=== PATIENT | male | born 1955 | race Native Hawaiian/Other Pacific Islander ===

== ENCOUNTER 2018-06-20 18:09 | Emergency (ER) | payer OTHER ==
[~2018-06-20] VITALS: Ht 175.3 cm; Wt 72.6 kg
[2018-06-20 18:18] VITALS: TEMP 98.1
[2018-06-20] MEDS ORDERED: GRALISE300 MG PO (18:23)
[2018-06-20] MEDS ORDERED: OXYC5TAB24 PO (18:24)
[2018-06-20 18:35] VITALS: BP 138/82
== END 2018-06-20 18:40 | disposition home or self-care (01) ==
LOC: ED 18:09
DX: G89.18 Other acute postprocedural pain (principal)
CPT/HCPCS: 96372; 99282; J1885

== ENCOUNTER 2018-09-06 13:08 | Emergency (ER) | payer OTHER ==
[~2018-09-06] VITALS: Ht 175.3 cm; Wt 72.6 kg
[~2018-09-06 13:08] MED LIST: GRALISE300 MG PO; OXYC5TAB24 PO
[2018-09-06 13:24] VITALS: TEMP 97.2
[2018-09-06 14:28] LABS: PLATELET COUNT 153 K/uL (142-355)
[2018-09-06 15:25] LABS: POTASSIUM 4.1 mmol/L (3.6-5.2)
[2018-09-06 16:55] VITALS: BP 155/68
== END 2018-09-06 16:55 | disposition home or self-care (01) ==
LOC: ED 13:08
DX: S62.001A Unspecified fracture of navicular [scaphoid] bone of right wrist, initial encounter for closed fracture (principal); Z98.890 Other specified postprocedural states
CPT/HCPCS: 36415; 80053; 80307; 81000; 85027; 96374; 96375; 99284; J1885; J2550

== ENCOUNTER 2018-09-29 12:41 | Outpatient (CLI) | payer OTHER | END 2018-09-29 23:59 | disposition home or self-care (01) | LOC: RAD 12:41 | DX: Z98.890 Other specified postprocedural states (principal); M25.531 Pain in right wrist ==

== ENCOUNTER 2018-12-14 18:37 | Emergency (ER) | payer OTHER ==
[~2018-12-14] VITALS: Ht 175.3 cm; Wt 72.6 kg
[2018-12-14 18:49] VITALS: BP 137/84; TEMP 97.5
== END 2018-12-14 20:12 | disposition home or self-care (01) ==
LOC: ED 18:37
DX: S69.92XA Unspecified injury of left wrist, hand and finger(s), initial encounter (principal); W19.XXXA Unspecified fall, initial encounter
CPT/HCPCS: 99281

== ENCOUNTER 2019-12-14 07:29 | Emergency (ER) | payer OTHER ==
[~2019-12-14] VITALS: Ht 175.3 cm; Wt 88.5 kg
[2019-12-14 09:12] LABS: PLATELET COUNT 137 K/uL (142-355)
[2019-12-14 09:21] LABS: POTASSIUM 4.5 mmol/L (3.6-5.2)
[2019-12-14 10:30] VITALS: BP 126/71; TEMP 98.3
== END 2019-12-14 10:32 | disposition short-term general hospital (02) ==
LOC: ED 07:29
PROVIDERS: Emergency Medicine
DX: K35.890 Other acute appendicitis without perforation or gangrene (principal); E86.0 Dehydration
CPT/HCPCS: 36415; 80053; 81000; 82150; 83690; 85027; 96360; 96365; 96374; 96375; 99285; J1885; J2270; J2405; J2543

== ENCOUNTER 2019-12-19 17:30 | Outpatient (CLI) | payer OTHER ==
[2019-12-19 18:07] LABS: PLATELET COUNT 162 K/uL (142-355)
== END 2019-12-19 19:05 | disposition home or self-care (01) ==
LOC: LABW 17:30
PROVIDERS: Family Medicine
DX: R10.9 Unspecified abdominal pain (principal); Z90.49 Acquired absence of other specified parts of digestive tract
CPT/HCPCS: 36415; 80053; 81000; 82150; 83690; 85027

== ENCOUNTER 2020-07-07 21:03 | Emergency (ER) | payer OTHER ==
[~2020-07-07] VITALS: Ht 175.3 cm; Wt 94.1 kg
[2020-07-07 23:35] VITALS: BP 146/72; TEMP 97.9
== END 2020-07-07 23:36 | disposition home or self-care (01) ==
LOC: ED 21:03
PROC: 09C47ZZ Extirpation of Matter from Left External Auditory Canal, Via Natural or Artificial Opening (ICD-10-PCS; principal; 2020-07-07)
DX: T16.2XXA Foreign body in left ear, initial encounter (principal)
CPT/HCPCS: 96372; 99282; J1885

== ENCOUNTER 2020-08-22 21:39 | Emergency (ER) | payer OTHER ==
[~2020-08-22] VITALS: Ht 175.3 cm; Wt 86.2 kg
[2020-08-22 23:26] VITALS: BP 110/76; TEMP 98.6
== END 2020-08-22 23:06 | disposition home or self-care (01) ==
LOC: ED 21:39
PROC: 2W3RX1Z Immobilization of Left Lower Leg using Splint (ICD-10-PCS; principal; 2020-08-22)
DX: S82.52XA Displaced fracture of medial malleolus of left tibia, initial encounter for closed fracture (principal); X50.1XXA Overexertion from prolonged static or awkward postures, initial encounter; Y92.89 Other specified places as the place of occurrence of the external cause
CPT/HCPCS: 96372; 99283; J1170; J1885; J2405

== ENCOUNTER 2021-06-04 10:38 | Outpatient (CLI) | payer OTHER ==
[2021-06-04 11:37] LABS: POTASSIUM 4.1 mmol/L (3.6-5.2)
== END 2021-06-04 19:32 | disposition home or self-care (01) ==
LOC: LABW 10:38
PROVIDERS: ATTEND Physician Assistant
DX: Z79.899 Other long term (current) drug therapy (principal)
CPT/HCPCS: 36415; 80053

== ENCOUNTER 2021-07-31 09:33 | Emergency (ER) | payer OTHER ==
[~2021-07-31] VITALS: Ht 175.3 cm; Wt 81.6 kg
[2021-07-31 10:51] VITALS: BP 158/80
== END 2021-07-31 10:53 | disposition home or self-care (01) ==
LOC: ED 09:33
DX: M25.572 Pain in left ankle and joints of left foot (principal); Z98.890 Other specified postprocedural states
CPT/HCPCS: 99282

== ENCOUNTER 2021-11-23 13:26 | Outpatient (CLI) | payer OTHER | END 2021-11-23 18:57 | disposition home or self-care (01) | LOC: RAD 13:26 | PROVIDERS: ATTEND Nurse Practitioner Family | DX: M25.561 Pain in right knee (principal) ==

== ENCOUNTER 2022-05-02 09:38 | Outpatient (CLI) | payer OTHER | END 2022-05-02 18:57 | disposition home or self-care (01) | LOC: MRI 09:38 | PROVIDERS: ATTEND Orthopaedic Surgery | DX: S83.281A Other tear of lateral meniscus, current injury, right knee, initial encounter (principal); Y92.89 Other specified places as the place of occurrence of the external cause ==

== ENCOUNTER 2022-10-14 12:07 | Emergency (ER) | payer OTHER ==
[~2022-10-14] VITALS: Ht 175.3 cm; Wt 61.2 kg
[2022-10-14 12:20] VITALS: BP 121/69; TEMP 97.1
== END 2022-10-14 14:22 | disposition home or self-care (01) ==
LOC: ED 12:07
DX: S91.341A Puncture wound with foreign body, right foot, initial encounter (principal); W25.XXXA Contact with sharp glass, initial encounter; S94.8X1A Injury of other nerves at ankle and foot level, right leg, initial encounter; W45.8XXA Other foreign body or object entering through skin, initial encounter; Y92.098 Other place in other non-institutional residence as the place of occurrence of the external cause
CPT/HCPCS: 99283

== ENCOUNTER 2022-11-02 13:15 | Outpatient (CLI) | payer OTHER ==
[2022-11-02 13:49] LABS: PLATELET COUNT 179 K/uL (142-355)
[2022-11-02 13:54] LABS: POTASSIUM 4.1 mmol/L (3.6-5.2)
== END 2022-11-02 19:33 | disposition home or self-care (01) ==
LOC: RESP 13:15 → LABW 13:15 → RESP 19:33
PROVIDERS: ATTEND Nurse Practitioner Family
DX: M79.602 Pain in left arm (principal); M54.12 Radiculopathy, cervical region
CPT/HCPCS: 36415; 80053; 82550; 82553; 84484; 85027; 93005

== ENCOUNTER 2022-11-02 18:13 | Emergency (ER) | payer OTHER ==
[~2022-11-02] VITALS: Ht 175.3 cm; Wt 72.6 kg
[2022-11-02 18:20] VITALS: TEMP 98.1
[2022-11-02 19:45] LABS: PLATELET COUNT 169 K/uL (142-355)
[2022-11-02 19:56] LABS: POTASSIUM 3.5 mmol/L (3.6-5.2)
[2022-11-02 21:00] VITALS: BP 154/70
== END 2022-11-02 21:00 | disposition home or self-care (01) ==
LOC: ED 18:13
PROVIDERS: Emergency Medicine Emergency Medical Services
DX: R07.89 Other chest pain (principal); M54.12 Radiculopathy, cervical region
CPT/HCPCS: 36415; 80053; 83735; 83880; 84484; 85027; 85610; 99283

== ENCOUNTER 2022-11-16 13:45 | Outpatient (CLI) | payer OTHER | END 2022-11-16 18:58 | disposition home or self-care (01) | LOC: MRI 13:45 | PROVIDERS: ATTEND Pain Medicine Interventional Pain Medicine | DX: M54.17 Radiculopathy, lumbosacral region (principal); M54.12 Radiculopathy, cervical region ==

== ENCOUNTER 2022-12-08 13:17 | Outpatient (CLI) | payer OTHER | END 2022-12-08 17:00 | disposition home or self-care (01) | LOC: US 13:17 | PROVIDERS: ATTEND Nurse Practitioner Family | DX: K40.90 Unilateral inguinal hernia, without obstruction or gangrene, not specified as recurrent (principal) ==

== ENCOUNTER 2022-12-27 09:08 | Outpatient (CLI) | payer OTHER | END 2022-12-27 19:19 | disposition home or self-care (01) | LOC: NM 09:08 | PROVIDERS: ATTEND Specialist | DX: R42 Dizziness and giddiness (principal); R07.89 Other chest pain | CPT/HCPCS: A9500 ==

== ENCOUNTER 2023-01-02 15:09 | Outpatient (CLI) | payer OTHER | END 2023-01-02 20:39 | disposition home or self-care (01) | LOC: RAD 15:09 | PROVIDERS: ATTEND Nurse Practitioner Primary Care | DX: M25.531 Pain in right wrist (principal) ==

== ENCOUNTER 2023-03-06 13:23 | Outpatient (CLI) | payer OTHER ==
[2023-03-06 13:58] LABS: POTASSIUM 4.1 mmol/L (3.6-5.2)
[2023-03-06 14:35] LABS: PLATELET COUNT 151 K/uL (142-355)
== END 2023-03-06 19:26 | disposition home or self-care (01) ==
LOC: LABW 13:23
PROVIDERS: ATTEND Specialist
DX: R07.89 Other chest pain (principal); R42 Dizziness and giddiness
CPT/HCPCS: 36415; 80048; 85027